=== PATIENT | male | born 1995 | race Caucasian/White ===

== ENCOUNTER → 2020-09-25 | Outpatient (CLI) | payer BC ==
--- NOTE | 2020-09-26 04:44 | MR ---
EXAMINATION TYPE: MR knee RT wo con DATE OF EXAM: 09/25/2020 COMPARISON: None HISTORY: Rt knee pain, injury 2 weeks ago Multiplanar multiecho imaging of the right knee was performed without contrast. The anterior and posterior cruciate ligaments are intact. There is mild knee joint effusion. The lateral meniscus is intact. There is small areas of increased signal within the posterior horn of the medial meniscus. There is slight increased signal on the T2 images in the medial aspect of the m edial femoral condyle. This is consistent with a minimal bone bruise. The collateral ligaments are in tact. IMPRESSION: Knee joint effusion. There is evidence of a small bone bruise in the medial femoral condyle. No evide nce of ligamentous tear. Slight increased signal in the posterior horn of the medial meniscus without a complete tear.
== END | disposition home or self-care (01) ==
LOC: RADMRIMAIN 20:01
PROVIDERS: ATTEND Orthopaedic Surgery
DX: M25.461 Effusion, right knee (principal); M89.8X5 Other specified disorders of bone, thigh; R93.7 Abnormal findings on diagnostic imaging of other parts of musculoskeletal system